=== PATIENT | female | born 1995 | race African-American/Black ===

== ENCOUNTER 2017-01-20 15:01 | Emergency (ER) | payer OTHER ==
[~2017-01-20] VITALS: Ht 165.1 cm; Wt 74.8 kg
[2017-01-20 15:01] VITALS: BP 134/90
[~2017-01-20 15:01] MED LIST: CLEOCIN HCL150 MG PO; ESTRADIOL 1 MG T1 M1 PO; IBUPROFEN 600600 M1 PO; NORCO 5-325 TA1 EACH PO; PENICILLIN V P500 MG PO; PROTONIX40 M4 PO; TENORMIN25 MG PO; TRAMADOL 50 MG50 MG PO
[2017-01-20] MEDS ORDERED: TIZANIDINE HCL4 MG PO (15:24)
[2017-01-20] MEDS ORDERED: NAPROSYN500 MG PO (15:24)
== END 2017-01-20 15:55 | disposition home or self-care (01) ==
LOC: ER 15:01
DX: M43.6 Torticollis (principal); J30.2 Other seasonal allergic rhinitis; Z88.1 Allergy status to other antibiotic agents; Z88.0 Allergy status to penicillin

== ENCOUNTER 2017-02-11 03:52 | Emergency (ER) | payer OTHER ==
[~2017-02-11] VITALS: Ht 165.1 cm; Wt 74.8 kg
--- NOTE | ~2017-02-11 | EKG ---
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
[~2017-02-11 03:52] MED LIST changes: +NAPROSYN500 MG PO; +TIZANIDINE HCL4 MG PO
[2017-02-11 05:11] LABS: ABSOLUTE NEUTROPHILS 4.2 thou/uL (1.4-8.2); BASOPHILS 0.4 % (0.0-2.0); EOSINOPHILS 1.6 % (0.0-3.0); HEMATOCRIT 37.5 % (37.0-47.0); HEMOGLOBIN 12.6 gm/dL (12.0-15.0); MCH 30.2 pg (26.0-34.0); MCHC 33.7 g/dL (28.0-37.0); MCV 89.6 fL (80.0-100.0); MONOCYTES 3.9 % (1.0-8.0); PLATELET COUNT 192 thou/uL (150-400); POLYS 54.1 % (36.0-66.0); RBC 4.19 mil/uL (4.20-5.00); WBC 7.8 thou/uL (4.0-11.0)
[2017-02-11 05:15] LABS: URINE BILIRUBIN 1+ (Negative); URINE BLOOD TRACE (Negative); URINE COLOR YELLOW; URINE GLUCOSE-RANDOM* NEGATIVE (Negative); URINE KETONES 1+ (Negative); URINE LEUKOCYTES-REFLEX NEGATIVE (Negative); URINE PROTEIN (DIPSTICK) NEGATIVE (Negative); URINE SPECIFIC GRAVITY >= 1.030 (1.003-1.035); URINE UROBILINOGEN 0.2 E.U./dl (0.2-1.0)
[2017-02-11 05:19] LABS: MANUAL DIFF NO
[2017-02-11 05:23] LABS: CALCIUM 9.3 mg/dL (8.5-10.1); CREATININE 0.8 mg/dL (0.6-1.0); POTASSIUM 4.2 mmol/L (3.5-5.1)
[2017-02-11 05:23] LABS: ICTOTEST (BILI CONFIRMATORY) Positive (Negative)
[2017-02-11] MEDS ORDERED: NAPROSYN500 MG PO (05:31)
[2017-02-11] MEDS ORDERED: ZOFRAN4 MG PO (05:31)
[2017-02-11 05:46] VITALS: BP 127/80
== END 2017-02-11 05:47 | disposition home or self-care (01) ==
LOC: ER 03:52
PROVIDERS: Emergency Medicine
DX: R42 Dizziness and giddiness (principal); R11.2 Nausea with vomiting, unspecified; R06.02 Shortness of breath; Z86.79 Personal history of other diseases of the circulatory system; Z98.890 Other specified postprocedural states; Z88.1 Allergy status to other antibiotic agents; Z88.0 Allergy status to penicillin

== ENCOUNTER → 2017-10-12 | Outpatient (CLI) | payer BC ==
[~2017-10-12] MED LIST changes: +ZOFRAN4 MG PO
== END ==
LOC: ULTRA 09:49
DX: R10.2 Pelvic and perineal pain (principal)

== ENCOUNTER 2018-12-28 07:54 | Emergency (ER) | payer BC ==
[~2018-12-28] VITALS: Ht 162.6 cm; Wt 65.8 kg
[2018-12-28 08:05] VITALS: BP 117/77
== END 2018-12-28 08:32 | disposition home or self-care (01) ==
LOC: ER 07:54
DX: J06.9 Acute upper respiratory infection, unspecified (principal); Z88.1 Allergy status to other antibiotic agents; Z88.0 Allergy status to penicillin

== ENCOUNTER 2019-05-01 13:56 | Emergency (ER) | payer BC ==
[~2019-05-01] VITALS: Ht 167.6 cm; Wt 65.8 kg
[2019-05-01 14:21] LABS: URINE BILIRUBIN NEGATIVE (Negative); URINE BLOOD NEGATIVE (Negative); URINE CLARITY CLEAR; URINE COLOR YELLOW; URINE GLUCOSE-RANDOM* NEGATIVE (Negative); URINE KETONES NEGATIVE (Negative); URINE LEUKOCYTES NEGATIVE (Negative); URINE NITRITE NEGATIVE (Negative); URINE PROTEIN (DIPSTICK) NEGATIVE (Negative); URINE UROBILINOGEN 0.2 E.U./dl (0.2-1.0)
[2019-05-01 14:30] LABS: AMP/METHAMP Negative (Negative); BARBITURATES Negative (Negative); BENZODIAZEPINES Negative (Negative); COCAINE Negative (Negative); METHADONE Negative (Negative); OPIATES Negative (Negative); PCP Negative (Negative)
[2019-05-01 14:40] LABS: BASOPHILS 0.4 % (0.0-2.0); EOSINOPHILS 1.8 % (0.0-3.0); HEMATOCRIT 33.7 % (37.0-47.0); HEMOGLOBIN 11.2 gm/dL (12.0-15.0); LYMPHOCYTES 23.1 % (24.0-44.0); MCH 30.7 pg (26.0-34.0); MCHC 33.2 g/dL (28.0-37.0); MCV 92.4 fL (80.0-100.0); MONOCYTES 7.6 % (1.0-8.0); PLATELET COUNT 171 thou/uL (150-400); POLYS 67.1 % (36.0-66.0); RBC 3.65 mil/uL (4.20-5.00); RDW 14.2 % (10.5-14.5); WBC 7.4 thou/uL (4.0-11.0)
[2019-05-01 15:01] LABS: CALCIUM 9.2 mg/dL (8.5-10.1); CREATININE 0.6 mg/dL (0.6-1.0); POTASSIUM 3.8 mmol/L (3.5-5.1)
[2019-05-01 15:04] LABS: ALBUMIN 3.6 g/dL (3.4-5.0); TOTAL BILIRUBIN 0.2 mg/dL (<0.1-1.0); TOTAL PROTEIN 6.9 g/dL (6.4-8.2)
[2019-05-01] MEDS ORDERED: ANTIVERT25 MG PO (16:05)
[2019-05-01 16:08] VITALS: BP 119/83
--- NOTE | 2019-05-01 23:33 | EKG ---
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1995 Requested By: Megan Lopez Order Number: [id number] MD: Sathish Sanchez Measurements Intervals [place] Rate: 93 P: 69 [place]: 141 QRS: 55 QRSD: 89 T: 45 QT: 350 QTc: 436 Interpretive Statements Sinus rhythm Compared to ECG 02/11/2017 04:11:11 No significant changes Electronically Signed On 05-01-2019 23:33:42 CDT by Sathish Sanchez [email or web address] ��������������������������������������������� <ELECTRONICALLY SIGNED> ���������������������������������������� By: Sathish Sanchez MD ��������������������������������������������� 05/01/19 2333 1425 1425 MD BRIANNA Joyner
== END 2019-05-01 16:08 | disposition home or self-care (01) ==
LOC: ER 13:56
PROVIDERS: Physician Assistant
DX: R42 Dizziness and giddiness (principal); E86.9 Volume depletion, unspecified; Z88.1 Allergy status to other antibiotic agents; Z88.0 Allergy status to penicillin; Z98.890 Other specified postprocedural states

== ENCOUNTER 2020-06-30 08:30 | Emergency (ER) | payer OTHER ==
[~2020-06-30] VITALS: Ht 162.6 cm; Wt 63.5 kg
[~2020-06-30 08:30] MED LIST changes: +ANTIVERT25 MG PO
[2020-06-30] MEDS ORDERED: ATENOLOL 25 MG25 M1 PO (08:47)
[2020-06-30 09:30] LABS: URINE BILIRUBIN NEGATIVE (Negative); URINE BLOOD 3+ (Negative); URINE CLARITY CLEAR; URINE COLOR YELLOW; URINE GLUCOSE-RANDOM* NEGATIVE (Negative); URINE KETONES 1+ (Negative); URINE LEUKOCYTES-REFLEX NEGATIVE (Negative); URINE NITRITE-REFLEX NEGATIVE (Negative); URINE PROTEIN (DIPSTICK) TRACE (Negative); URINE SPECIFIC GRAVITY >= 1.030 (1.005-1.035); URINE UROBILINOGEN 0.2 E.U./dl (0.2-1.0)
[2020-06-30 09:42] LABS: SQUAMOUS >10 Many /LPF (0-3)
[2020-06-30 09:48] LABS: CASTS None Seen /LPF (None Seen); CRYSTALS None Seen /LPF (None Seen)
[2020-06-30 09:49] LABS: MUCUS 4-6 Moderate strn/LPF (None Seen)
[2020-06-30 09:51] LABS: BACTERIA-REFLEX 1-9 Few /HPF (None Seen); URINE WBC-REFLEX 0-5 Rare /HPF (0-5)
[2020-06-30 10:19] VITALS: BP 113/74
--- NOTE | 2020-06-30 12:21 | EKG ---
[facility] [place] [address] ELECTROCARDIOGRAM REPORT Name: TANA HINOJOSA Room #: DEP [facility]#: [id number] Admission: 06/30/20 Attend Phys: Discharge: 06/30/20 Date of : [birth year] Report #: [id number] THIS REPORT FOR: cc: Christoph Herrera MD, Neal A. MD Santiago, Patrick MD 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 /EPI
== END 2020-06-30 10:24 | disposition home or self-care (01) ==
LOC: ER 08:30
PROVIDERS: Emergency Medicine
DX: N94.6 Dysmenorrhea, unspecified (principal); I10 Essential (primary) hypertension; Z79.899 Other long term (current) drug therapy; Z88.0 Allergy status to penicillin; Z88.1 Allergy status to other antibiotic agents

== ENCOUNTER 2021-04-02 11:51 | Emergency (ER) | payer BC ==
[~2021-04-02] VITALS: Ht 165.1 cm; Wt 68.0 kg
[~2021-04-02 11:51] MED LIST changes: +ATENOLOL 25 MG25 M1 PO
[2021-04-02 12:27] LABS: HEMATOCRIT 37.4 % (37.0-47.0); HEMOGLOBIN 12.2 gm/dL (12.0-15.0); MCH 30.4 pg (26.0-34.0); MCHC 32.7 g/dL (28.0-37.0); RBC 4.02 mil/uL (4.20-5.00); RDW 13.3 % (10.5-14.5); WBC 4.4 thou/uL (4.0-11.0)
[2021-04-02 12:33] LABS: CALCIUM 9.1 mg/dL (8.5-10.1); CREATININE 0.8 mg/dL (0.6-1.0); POTASSIUM 3.5 mmol/L (3.5-5.1)
[2021-04-02 12:40] LABS: ALBUMIN 4.1 g/dL (3.4-5.0); TOTAL BILIRUBIN 0.8 mg/dL (0.2-1.0); TOTAL PROTEIN 7.6 g/dL (6.4-8.2)
[2021-04-02 13:19] LABS: URINE BILIRUBIN NEGATIVE (Negative); URINE BLOOD 2+ (Negative); URINE CLARITY CLEAR; URINE COLOR YELLOW; URINE GLUCOSE-RANDOM* NEGATIVE (Negative); URINE KETONES 1+ (Negative); URINE LEUKOCYTES-REFLEX NEGATIVE (Negative); URINE NITRITE-REFLEX NEGATIVE (Negative); URINE PROTEIN (DIPSTICK) TRACE (Negative); URINE SPECIFIC GRAVITY 1.025 (1.005-1.035); URINE UROBILINOGEN 0.2 E.U./dl (0.2-1.0)
[2021-04-02] MEDS ORDERED: METHOCARBAMOL500 M2 PO (14:07)
[2021-04-02] MEDS ORDERED: ZOFRAN ODT4 MG PO (14:07)
[2021-04-02 14:10] LABS: CASTS None Seen /LPF (None Seen); SQUAMOUS 4-10 Moderate /LPF (0-3); URINE RBC 3-10 Few /HPF (NONE SEEN)
[2021-04-02 14:11] LABS: BACTERIA-REFLEX 1-9 Few /HPF (None Seen); URINE WBC-REFLEX 0-5 Rare /HPF (0-5)
[2021-04-02 14:18] VITALS: BP 121/80
== END 2021-04-02 14:22 | disposition home or self-care (01) ==
LOC: ER 11:51
PROVIDERS: Nurse Practitioner Family
DX: N94.6 Dysmenorrhea, unspecified (principal); Z88.0 Allergy status to penicillin; Z88.1 Allergy status to other antibiotic agents; Z98.890 Other specified postprocedural states